=== PATIENT | female | born 1985 | race Caucasian/White ===

== ENCOUNTER 2016-07-15 08:04 | Emergency (ER) | payer MEDICAID ==
[2016-07-15 08:52] VITALS: RESP 18; O2SAT 98
--- NOTE | 2016-07-15 09:27 | C.PDOC ---
History Of Present Illness 30 y/o female, lmp 2/7, +preg test at home, c/o vaginal bleeding with small clots since last night, soaked one pad. +lower abdomen cramps. . pt has not started pre- care yet. Time Seen by Provider: 07/15/16 08:25 Chief Complaint (Nursing): Female Genitourinary Past Medical History Reviewed: Historical Data, Nursing Documentation, Vital Signs Vital Signs: Last Vital Signs Temp 98.6 F 07/15/16 11:48 Pulse 69 07/15/16 11:48 Resp 18 07/15/16 11:48 BP 112/74 07/15/16 11:48 Pulse Ox 98 07/15/16 11:48 - Medical History PMH: No Chronic Diseases Surgical History: Family History: States: Unknown Family Hx - Social History Hx Tobacco Use: No Hx Alcohol Use: No Hx Substance Use: No - Immunization History Hx Tetanus Toxoid Vaccination: No Hx Influenza Vaccination: No Hx Pneumococcal Vaccination: No Review Of Systems Constitutional: Negative for: Fever, Chills Cardiovascular: Negative for: Chest Pain, Palpitations Respiratory: Negative for: Cough, Shortness of Breath Gastrointestinal: Positive for: Abdominal Pain. Negative for: Nausea, Vomiting , Diarrhea Genitourinary: Positive for: Vaginal Bleeding. Negative for: Dysuria, Frequency Neurological: Negative for: Weakness, Numbness Physical Exam - Physical Exam Appears: Non-toxic, No Acute Distress Skin: Normal Color, Warm, Dry Head: Atraumatic, Normacephalic Oral Mucosa: Moist Neck: Normal ROM Chest: Symmetrical, No Deformity, No Tenderness Cardiovascular: Rhythm Regular, No Murmur Gastrointestinal/Abdominal: Bowel Sounds, Soft, Tenderness (suprapubic), No Distention, No Guarding, No Rebound Pelvic: Vaginal Bleeding, No Cervical Motion Tenderness, No Cervix Open, No Adnexal Tenderness Extremity: No Calf Tenderness, No Swelling ED Course And Treatment - Laboratory Results Result Diagrams: 07/15/16 09:43 07/15/16 09:43 O2 Sat by Pulse Oximetry: 98 Medical Decision Making Medical Decision Making: preg female with ab pain and bleeding ua, upreg type and screen labs pelvic sonogram 1140 am. no sono evidence of iup or ectopic preg. I discussed results with patient, explained how this can either be a very early , early ectopic or complete , and how she will need repeat bhcg in 48 hours. Disposition Counseled Patient/Family Regarding: Diagnosis, Need For Followup - Disposition Referrals: Gualberto Latham MD [Staff Provider] - Disposition: HOME/ ROUTINE Disposition Time: 11:42 Condition: STABLE Additional Instructions: Follow up in 48 hours for repeat bhcg blood test. Is was 16 here in ED. Return to ED sooner for any worsening pain, heavy bleeding (one pad per hour), dizziness, fainting or any other concerning symptoms. P{elvic rest- nothing in vagina. Instructions: Threatened Miscarriage (ED) Forms: General Discharge Instructions - Clinical Impression Clinical Impression: Vaginal bleeding in patient at less than 20 weeks gestation
[2016-07-15 09:48] LABS: BASO % 0.4 % (0.0-2.0); EOS # 0.2 K/uL (0.0-0.7); EOS % 1.8 % (0.0-4.0); HEMATOCRIT 35.1 % (34.0-47.0); LYMPH # 2.3 K/uL (1.0-4.3); LYMPH % 26.7 % (20.0-40.0); MEAN CELL VOLUME 77.6 fL (81.0-99.0); MEAN CORPUSCULAR HEMOGLOBIN 24.4 pg (27.0-31.0); MEAN CORPUSCULAR HGB CONC 31.4 g/dL (33.0-37.0); MEAN PLATELET VOLUME 9.5 fL (7.2-11.7); MONO # 0.9 K/uL (0.0-0.8); MONO % 10.4 % (0.0-10.0); RED CELL DISTRIBUTION WIDTH 17.4 % (11.5-14.5); WHITE BLOOD COUNT 8.6 K/uL (4.8-10.8)
[2016-07-15 09:55] LABS: CHLORIDE 99 mmol/L (98-107); SODIUM 139 mmol/L (132-148)
[2016-07-15 09:56] LABS: POTASSIUM 3.6 mmol/L (3.6-5.2)
[2016-07-15 09:58] LABS: ALB/GLOB RATIO 1.2 (1.0-2.1); ALKALINE PHOSPHATASE 112 U/L (38-126); ALT/SGPT 20 U/L (9-52); AST/SGOT 23 U/L (14-36); BILIRUBIN,TOTAL 0.2 mg/dL (0.2-1.3); BLOOD UREA NITROGEN 11 mg/dL (7-17); CARBON DIOXIDE 26 mmol/L (22-30); GFR AFRICAN-AMERICAN > 60; GLUCOSE,RANDOM 81 mg/dL (65-105); TOTAL PROTEIN 6.9 g/dL (6.3-8.3)
[2016-07-15 09:59] LABS: CALCIUM 7.8 mg/dl (8.6-10.4)
--- NOTE | 2016-07-15 11:27 | US ---
HISTORY: preg with pain and bleeding. LMP 05/26/2016 COMPARISON: None available. TECHNIQUE: Transabdominal, transvaginal. Real -time technique with 2D, duplex and color Doppler. FINDINGS: UTERUS: Measures 12.3 x 5.7 x 6.8 cm. Enlarged, heterogeneous uterus No fibroid or other mass lesion seen. ENDOMETRIUM: Measures 9.7 mm in diameter. No ultrasound findings to suggest gestational sac, fluid, debris, mass or polyp or other pathologic process within the endometrium. CERVIX: No cervical abnormality identified.Incidental finding: Nabothian cysts RIGHT OVARY: Measures 4.3 x 1.6 x 3 cm. No solid mass. Normal flow. Multiple subcentimeter follicles. LEFT OVARY: Measures 3.5 x 2.2 x 3.7 cm. No solid mass. Normal flow. FREE FLUID: No significant free fluid noted. OTHER FINDINGS: None. IMPRESSION: No ultrasound findings of intrauterine gestation or ectopic gestation. Unremarkable uterus, endometrial echo complex and adnexa.
[2016-07-15 11:52] VITALS: BP 112/74; PULSE 69; TEMP 98.6
[2016-07-15 11:56] LABS: URINE BILIRUBIN NEGATIVE (NEGATIVE); URINE COLOR Yellow (YELLOW); URINE GLUCOSE (UA) NORMAL (Normal); URINE KETONE NEGATIVE (NEGATIVE); URINE LEUKOCYTE ESTERASE NEG Leu/uL (Negative); URINE PROTEIN NEGATIVE (NEGATIVE); URINE UROBILINOGEN NORMAL mg/dL (0.2-1.0); WBC URINE 1 /hpf (0-5)
[2016-07-15 12:09] LABS: RBC URINE 5 /hpf (0-3); URINE BACTERIA MANY (<OCC); URINE BLOOD 3+ (NEGATIVE)
== END 2016-07-15 11:53 | disposition home or self-care (01) ==
LOC: C.ER 08:04
DX: O20.8 Other hemorrhage in early pregnancy (principal); Z3A.00 Weeks of gestation of pregnancy not specified

== ENCOUNTER 2016-07-17 08:16 | Emergency (ER) | payer MEDICAID ==
[2016-07-17 08:18] VITALS: BMI 30.2
[2016-07-17 08:20] VITALS: RESP 18; O2SAT 98
[2016-07-17 09:28] LABS: RBC URINE 55 /hpf (0-3); URINE BACTERIA RARE (<OCC); URINE BILIRUBIN NEGATIVE (NEGATIVE); URINE BLOOD 3+ (NEGATIVE); URINE CALCIUM OXALATE CRYSTALS RARE /hpf (<OCC); URINE COLOR Straw (YELLOW); URINE GLUCOSE (UA) NORMAL (Normal); URINE KETONE NEGATIVE (NEGATIVE); URINE LEUKOCYTE ESTERASE NEG Leu/uL (Negative); URINE PROTEIN NEGATIVE (NEGATIVE); URINE UROBILINOGEN NORMAL mg/dL (0.2-1.0); WBC URINE 1 /hpf (0-5)
[2016-07-17 09:55] VITALS: BP 100/64; PULSE 70; TEMP 98.5
--- NOTE | 2016-07-17 11:28 | C.PDOC ---
History Of Present Illness 30 year old patient presents to the ED requesting a repeat of beta hcg. Pt took a home test last week which was (+) . Then she had heavy vaginal bleeding with clots on 07/15/16 and came into ED for evaluation. She had a beta hcg of 16 and no IUP on US. For the last two days the cramping and bleeding have improved and lessened. Patient denies fever, shortness of breath, nausea, vomiting, diarrhea, urinary symptoms, or back pain. Time Seen by Provider: 07/17/16 08:34 Chief Complaint (Nursing): Medical Clearance History Per: Patient History/Exam Limitations: no limitations Onset/Duration Of Symptoms: Days (2) Current Symptoms Are (Timing): Still Present Severity: Mild Pain Scale Rating Of: 3 Reports Recently: Seen In ED Recent travel outside of the [place]: No Additional History Per: Prior Records Past Medical History Reviewed: Historical Data, Nursing Documentation, Vital Signs Vital Signs: Last Vital Signs Temp 98.5 F 07/17/16 09:52 Pulse 70 07/17/16 09:52 Resp 18 07/17/16 09:52 BP 100/64 07/17/16 09:52 Pulse Ox 98 07/17/16 11:52 Surgical History: Family History: States: Unknown Family Hx - Social History Hx Tobacco Use: No Hx Alcohol Use: No Hx Substance Use: No - Immunization History Hx Tetanus Toxoid Vaccination: No Hx Influenza Vaccination: No Hx Pneumococcal Vaccination: No Review Of Systems Except As Marked, All Systems Reviewed And Found Negative. Constitutional: Negative for: Fever Respiratory: Negative for: Shortness of Breath Gastrointestinal: Positive for: Abdominal Pain. Negative for: Nausea, Vomiting , Diarrhea Genitourinary: Positive for: Vaginal Bleeding. Negative for: Dysuria Musculoskeletal: Negative for: Back Pain Physical Exam - Physical Exam Appears: Non-toxic, No Acute Distress Skin: Warm, Dry Head: Atraumatic, Normacephalic Eye(s): bilateral: Normal Inspection, EOMI Nose: Normal Oral Mucosa: Moist Neck: Normal ROM, Supple Chest: Symmetrical Cardiovascular: Rhythm Regular Respiratory: Normal Breath Sounds, No Accessory Muscle Use Gastrointestinal/Abdominal: Soft, Tenderness (suprapubic), No Guarding, No Rebound Back: Normal Inspection, No CVA Tenderness Extremity: Normal ROM Neurological/Psych: Oriented x3, Normal Speech, Normal Cognition Gait: Steady ED Course And Treatment O2 Sat by Pulse Oximetry: 98 (RA) Pulse Ox Interpretation: Normal Progress Note: Plan: -Labs. --Reassess and disposition. Patient's beta hcg is 6. Bleeding and cramping have lessened. No IUP on US. Patient had a spontaneous miscarriage. Patient is discharged and instructed to follow up with yard goods salesperson in 2-3 days or return if symptoms worsen. Disposition - Disposition Disposition: HOME/ ROUTINE Disposition Time: 10:00 Condition: STABLE Additional Instructions: Follow up with your [facility] DIRECTOR in 1-2 days. Return to ER if symptoms persist or worsen. Instructions: Spontaneous Miscarriage (ED) - Clinical Impression Clinical Impression: Spontaneous - PA / ROAD MAKER / Resident Statement MD/DO has reviewed & agrees with the documentation as recorded. - Scribe Statement The provider has reviewed the documentation as recorded by the Scribe Juliet Ledezma All medical record entries made by the Scribe were at my direction and personally dictated by me. I have reviewed the chart and agree that the record accurately reflects my personal performance of the history, physical exam, medical decision making, and the department course for this patient. I have also personally directed, reviewed, and agree with the discharge instructions and disposition.
== END 2016-07-17 09:55 | disposition home or self-care (01) ==
LOC: C.ER 08:16
DX: O03.9 Complete or unspecified spontaneous abortion without complication (principal)

== ENCOUNTER 2018-07-01 03:44 | Emergency (ER) | payer MEDICAID ==
[2018-07-01 03:45] VITALS: BMI 30.2
[2018-07-01] MEDS ORDERED: Albuterol-Ipratrop 3 mg / 0.5 (3 ml) UD INH STA ×2 (03:45→04:00)
[2018-07-01] MEDS ORDERED: Albuterol-Ipratrop 3 mg / 0.5 (3 ml) UD ONE ×2 (03:51→04:00)
--- NOTE | 2018-07-01 04:07 | C.PDOC ---
History Of Present Illness 32 year old female presents to the ED c/o SOB and cough that started tonight. Patient reports she recently finished a course of antibiotics, felt fine in the morning but symptoms worsened as the day progressed. Patient states she used her inhaler with no relief. Patient denies fever, chills, CP, palpitations, headache, rash, recent travel, sick contacts. Time Seen by Provider: 07/01/18 04:07 Chief Complaint (Nursing): Shortness Of Breath History Per: Patient History/Exam Limitations: no limitations Onset/Duration Of Symptoms: Days Current Symptoms Are (Timing): Still Present Initiating Event: Upper Respiratory Illness Quality: Tightness Exacerbating Factor(s): Coughing Current Respiratory Medications: See Home Med List Recent travel outside of the [place]: No Additional History Per: Patient Past Medical History Reviewed: Historical Data, Nursing Documentation, Vital Signs Vital Signs: Last Vital Signs Temp Pulse 105 H 07/01/18 03:55 Resp 22 07/01/18 03:59 BP 131/71 07/01/18 03:55 Pulse Ox 99 07/01/18 03:55 - Medical History PMH: Bronchitis Surgical History: Family History: States: Unknown Family Hx - Social History Hx Tobacco Use: No Hx Alcohol Use: No Hx Substance Use: No - Immunization History Hx Tetanus Toxoid Vaccination: No Hx Influenza Vaccination: No Hx Pneumococcal Vaccination: No Review Of Systems Constitutional: Negative for: Fever, Chills ENT: Negative for: Nose Discharge, Nose Congestion Cardiovascular: Negative for: Chest Pain, Palpitations Respiratory: Positive for: Cough, Shortness of Breath. Negative for: Sputum, Wheezing Gastrointestinal: Negative for: Nausea, Vomiting, Abdominal Pain Skin: Negative for: Rash Neurological: Negative for: Weakness, Numbness, Headache Physical Exam - Physical Exam Appears: Non-toxic, No Acute Distress Skin: Warm, Dry Head: Normacephalic Eye(s): bilateral: Normal Inspection Oral Mucosa: Moist Neck: Supple Chest: Symmetrical Cardiovascular: Rhythm Regular Respiratory: Decreased Breath Sounds, No Rales, Rhonchi (diffuse), Wheezing (diffuse), Other (speaking complete sentences) Gastrointestinal/Abdominal: Soft, No Tenderness, No Guarding, No Rebound Extremity: Bilateral: Atraumatic, Normal Color And Temperature, Normal ROM Neurological/Psych: Oriented x3, Normal Speech, Normal Cognition Gait: Steady ED Course And Treatment - Laboratory Results Result Diagrams: 07/01/18 04:25 07/01/18 04:25 O2 Sat by Pulse Oximetry: 99 (ON RA) Pulse Ox Interpretation: Normal - Radiology CXR: Interpreted by Me, Viewed By Me CXR Interpretation: No: Infiltrates, Fracture, Pnemothorax Progress Note: Plan: - VBG. - Labs. - CXR. - Duoneb. - Mag sulfate. - SOlumedrol 125 mg IVP. - IV fluids. - Influenza A B. - UA Reevaluation Time: 05:28 Reassessment Condition: Improved Critical Care Time - Critical Care Note Total Time (in mins): 30 Documented critical care: time excludes all time spent performing seperately billable procedures. Medical Decision Making Medical Decision Making: Upon provider reevaluation patient is feeling better, is medically stable, and requires no further treatment in the ED at this time. Patient will be discharged home with Rx for prednisone, z pack . Counseling was provided and all questions were answered regarding diagnosis and need for follow up withdr constantino. There is agreement to discharge plan. Return if symptoms persist or worsen. Disposition Counseled Patient/Family Regarding: Studies Performed, Diagnosis, Need For Followup, Rx Given - Disposition Referrals: Sameera Constantino [Staff Provider] - Disposition: HOME/ ROUTINE Disposition Time: 04:07 Condition: FAIR Additional Instructions: Please return if symptoms recur Prescriptions: Azithromycin [Zithromax] 500 mg PO DAILY #3 tablet Prednisone [Deltasone] 20 mg PO DAILY #5 tablet Instructions: Asthma, Adult (DC) Forms: [employer] (Honduran) - Clinical Impression Clinical Impression: Asthma exacerbation - Scribe Statement The provider has reviewed the documentation as recorded by the Scribe Aleksandr Lara All medical record entries made by the Scribe were at my direction and personally dictated by me. I have reviewed the chart and agree that the record accurately reflects my personal performance of the history, physical exam, medical decision making, and the department course for this patient. I have also personally directed, reviewed, and agree with the discharge instructions and disposition.
[2018-07-01] MEDS ORDERED: Sodium Chloride 0.9% 1,000 ML IV ONE (04:14)
[2018-07-01 04:28] LABS: BASO # 0.1 K/uL (0.0-0.2); BASO % 1.1 % (0.0-2.0); EOS # 1.1 K/uL (0.0-0.7); EOS % 9.5 % (0.0-4.0); LYMPH # 3.1 K/uL (1.0-4.3); LYMPH % 26.3 % (20.0-40.0); MEAN CELL VOLUME 72.2 fL (81.0-99.0); MEAN CORPUSCULAR HEMOGLOBIN 21.7 pg (27.0-31.0); MEAN CORPUSCULAR HGB CONC 30.1 g/dL (33.0-37.0); MEAN PLATELET VOLUME 8.3 fL (7.2-11.7); MONO # 0.8 K/uL (0.0-0.8); MONO % 6.5 % (0.0-10.0); NEUT # 6.7 K/uL (1.8-7.0); NEUT % 56.6 % (50.0-75.0); RBC 4.61 Mil/uL (3.80-5.20); RED CELL DISTRIBUTION WIDTH 18.1 % (11.5-14.5); WHITE BLOOD COUNT 11.9 K/uL (4.8-10.8)
[2018-07-01] MEDS ORDERED: Magnesium Sulfate 1 gm in D5W 1 GM/100 ML BAG IVPB ONE (04:33)
[2018-07-01 04:34] LABS: VENOUS BLOOD GAS BASE EXCESS -0.1 mmol/L (0.0-2.0); VENOUS BLOOD GAS PCO2 52 mmHg (40-60); VENOUS BLOOD GAS PO2 25 mm/Hg (30-55); VENOUS BLOOD PH 7.32 (7.32-7.43)
[2018-07-01] MEDS: Magnesium Sulfate 1 gm in D5W 1 GM/100 ML BAG IVPB SCH ×2 (04:36→05:39)
[2018-07-01 04:41] LABS: ALB/GLOB RATIO 1.4 (1.0-2.1); ALBUMIN 4.5 g/dL (3.5-5.0); ALT/SGPT 24 U/L (9-52); AST/SGOT 26 U/L (14-36); BLOOD UREA NITROGEN 13 mg/dL (7-17); CALCIUM 8.2 mg/dl (8.6-10.4); GFR NON-AFRICAN AMERICAN > 60
[2018-07-01 04:54] LABS: HCG,QUALITATIVE URINE NEGATIVE (NEGATIVE)
[2018-07-01] MEDS ORDERED: Piperacillin/Tazobact 3.375 gm 100 ML IVPB STA (04:54)
[2018-07-01 05:02] LABS: SQUAMOUS EPITHIAL 21 /hpf (0-5); URINE BILIRUBIN NEGATIVE (NEGATIVE); URINE BLOOD 3+ (NEGATIVE); URINE CLARITY Hazy (Clear); URINE COLOR Red (YELLOW); URINE GLUCOSE (UA) NORMAL (Normal); URINE LEUKOCYTE ESTERASE TRACE Leu/uL (Negative); URINE PROTEIN 2+ mg/dL (NEGATIVE); URINE UROBILINOGEN NORMAL mg/dL (0.2-1.0)
[2018-07-01] MEDS ORDERED: Piperacillin/Tazobact 3.375 gm 100 ML IVPB ONE (05:05)
[2018-07-01 05:39] VITALS: BP 115/78; PULSE 90; RESP 18; TEMP 99; O2SAT 96
--- NOTE | 2018-07-01 10:29 | RAD ---
Date of service: 07/01/2018 HISTORY: SOB COMPARISON: No prior. TECHNIQUE: Chest PA and lateral FINDINGS: LUNGS: Mild pulmonary vascular congestion and prominent lung markings more prominent in the lower lobes. No evidence of focal consolidation PLEURA: . CARDIOVASCULAR: No aortic atherosclerotic calcification present. Normal cardiac size. No pulmonary vascular congestion. OSSEOUS STRUCTURES: No significant abnormalities. VISUALIZED UPPER ABDOMEN: Normal. OTHER FINDINGS: None. IMPRESSION: Mild pulmonary vascular congestion and prominent lung markings. No radiographic evidence of pneumonia.
== END 2018-07-01 05:39 | disposition home or self-care (01) ==
LOC: C.ER 03:44
DX: J45.901 Unspecified asthma with (acute) exacerbation (principal)
CPT/HCPCS: 71046; 80053; 81001; 82803; 84703; 85025; 87804; 96365; 96366; 96375; 99284; J2543; J2930; J3475; J7030